=== PATIENT | female | born 1955 | race Hispanic/Latino ===

== ENCOUNTER 2022-01-26 12:10 | Emergency (ER) | payer OTHER, SELFPAY ==
[2022-01-26 12:49] LABS: #Basophils 0.1 thou/uL (0.0-0.2); #Eosinphils 0.2 thou/uL (0.0-0.7); #Lymphocytes 2.3 thou/uL (1.20-3.40); #Monocytes 0.3 thou/uL (0.11-0.59); #Neutrophils 5.2 thou/uL (1.40-6.50); %Basophils 0.7 % (0.0-1.0); %Eosinophils 2.5 % (0.0-10.0); %Lymphocytes 28.7 % (21.0-51.0); %Monocytes 4.3 % (0.0-10.0); %Neutrophils 63.8 % (42.0-75.0); Hemoglobin 13.7 g/dL (12.0-16.0); Mean Corpuscular HGB CONC 30.8 g/dL (32.0-36.0); Mean Corpuscular Hemoglobin 30.4 pg (27.0-31.0); Mean Corpuscular Volume 98.8 fL (78.0-98.0); Mean Platelet Volume 8.2 fL (7.4-10.4); Platelet Count 228 thou/uL (130-400); Red Blood Cell (RBC) Count 4.52 mill/uL (4.20-5.40); White Blood Cell (WBC) Count 8.1 thou/uL (4.8-10.8)
[2022-01-26 13:12] LABS: ALT (SGPT) 12 U/L (8-55); AST (SGOT) 17 U/L (5-34); Albumin 3.7 g/dL (3.4-4.8); Alkaline Phosphatase 89 U/L (40-110); Anion Gap 15 mmol/L (10-20); BUN (Urea Nitrogen) 12 mg/dL (9.8-20.1); Bilirubin, Total 0.6 mg/dL (0.2-1.2); Calc. Creatinine Clearance 0 mL/min (70-130); Calcium 8.2 mg/dL (7.8-10.44); Carbon Dioxide 22 mmol/L (23-31); Chloride 108 mmol/L (98-107); Globulin 2.7 g/dL (2.4-3.5); Glucose 122 mg/dL (80-115); Potassium 3.9 mmol/L (3.5-5.1); Protein, Total 6.4 g/dL (5.8-8.1); Sodium 141 mmol/L (136-145)
[2022-01-26] MEDS ORDERED: Ibuprofen 800 MG TAB ONE (14:51)
[2022-01-26] MEDS ORDERED: Acetaminophen 500 MG TAB ONE (14:51)
== END 2022-01-26 14:55 | disposition home or self-care (01) ==
LOC: ERS 12:10 → EDBD 12:10 → ERS 14:55
DX: R55 Syncope and collapse (principal); S09.90XA Unspecified injury of head, initial encounter; I10 Essential (primary) hypertension; Z79.899 Other long term (current) drug therapy; W22.8XXA Striking against or struck by other objects, initial encounter; Y92.89 Other specified places as the place of occurrence of the external cause
CPT/HCPCS: 70450; 71045; 80053; 84484; 85025; 93005

== ENCOUNTER 2022-03-09 01:35 | Emergency (ER) | payer SELFPAY ==
[2022-03-09] MEDS ORDERED: Oxymetazoline HCl 0.05% (30 ML BOT) ONE (01:56)
== END 2022-03-09 02:30 | disposition home or self-care (01) ==
LOC: ERS 01:35
DX: R04.0 Epistaxis (principal); I10 Essential (primary) hypertension
CPT/HCPCS: 99283

== ENCOUNTER 2022-03-27 10:28 | Outpatient (CLI) | payer OTHER | END 2022-03-27 10:29 | disposition home or self-care (01) | LOC: BICRAD 10:28 | PROVIDERS: ATTEND Nurse Practitioner Family | DX: Z00.00 Encounter for general adult medical examination without abnormal findings (principal) | CPT/HCPCS: 71046 ==